=== PATIENT | female | born 1965 | race Caucasian/White ===

== ENCOUNTER 2020-11-26 11:47 | Emergency (ER) | payer OTHER ==
[~2020-11-26] VITALS: Ht 162.6 cm; Wt 55.7 kg
[2020-11-26] MEDS ORDERED: ASPIRIN 81 MG TABLET CHEW PO ONE (12:30)
[2020-11-26] MEDS ORDERED: PLEASE ENTER ALLERGIES MC SCH (12:30)
[2020-11-26 12:33] LABS: BASOPHILS % (AUTO) 2 % (0-1); EOSINOPHILS % (AUTO) 1 % (1-7); LYMPHOCYTES % (AUTO) 43 % (22-44); MEAN CORPUSCULAR HEMOGLOBIN 34.1 pg (27.0-34.8); MEAN CORPUSCULAR HGB CONC 34.6 g/dL (32.4-35.8); MEAN PLATELET VOLUME 7.2 fL (7.4-10.4); MONOCYTES % (AUTO) 13 % (2-9); NEUTROPHILS % (AUTO) 41 % (42-75); PLATELET COUNT 228 x10^3/uL (130-400); RED BLOOD COUNT 4.35 x10^6/uL (3.82-5.3); RED CELL DISTRIBUTION WIDTH 13.4 % (9.6-15.2)
[2020-11-26] MEDS ORDERED: ASPIRIN 81 MG TABLET CHEW ONE (12:34)
[2020-11-26 12:42] LABS: ALANINE AMINOTRANSFERASE 55 U/L (12-78); ALBUMIN 4.5 g/dL (3.4-5.0); ANION GAP 10 mmol/L (5-15); CALCIUM 8.5 mg/dL (8.5-10.1); CHLORIDE 106 mmol/L (98-107); CREATININE 0.48 mg/dL (0.55-1.02)
[2020-11-26 12:46] LABS: ALKALINE PHOSPHATASE 48 U/L (45-117); BILIRUBIN,TOTAL 0.3 mg/dL (0.2-1.0); TOTAL PROTEIN 8.1 g/dL (6.4-8.2); TROPONIN I < 0.015 ng/mL (0.000-0.045)
[2020-11-26 13:51] VITALS: BP 134/74
== END 2020-11-26 14:10 | disposition home or self-care (01) ==
LOC: ED 13:30
DX: R07.89 Other chest pain (principal); I10 Essential (primary) hypertension; E78.5 Hyperlipidemia, unspecified
CPT/HCPCS: 36415; 71046; 80053; 84484; 85025; 93005; 99285